=== PATIENT | female | born 1990 | race African-American/Black ===

== ENCOUNTER 2018-12-07 06:16 | Inpatient (IN) ==
[2018-12-07] MEDS ORDERED: LACTATED RINGERS 250 ML IV ONE (06:35)
[2018-12-07] MEDS ORDERED: ONDANSETRON 4 MG/2 ML VIAL IV PRN ×2 (06:35→17:54)
[2018-12-07] MEDS ORDERED: MEPERIDINE 50 MG/1 ML VIAL IV PRN (06:35)
[2018-12-07] MEDS ORDERED: LACTATED RINGERS 500 ML IV PRN (06:35)
[2018-12-07] MEDS ORDERED: BUTORPHANOL 1 MG/ML VIAL IV PRN (06:35)
[2018-12-07] MEDS ORDERED: OXYTOCIN/LR 20 UNIT/1,000 ML BAG IV SCH (07:00)
[2018-12-07 07:03] LABS: Basophils % 0.4 % (0.0-0.8); Eosinophils # 0.1 10*3/uL (0.0-0.87); Eosinophils % 1.3 % (0.00-10.9); Hematocrit 29.7 VOL% (35.7-47.0); Hemoglobin 9.3 GM/DL (12.0-16.0); Immature Granulocytes % 1.6 %; Immature Granulocytes Absolute 0.17 #; Lymphocytes # 1.9 10*3/uL (1.4-4.0); Lymphocytes % 17.5 % (21.3-54.2); Mean Corpuscular HGB Conc 31.3 GM/DL (32-36); Mean Corpuscular Volume 89.2 FL (87-102); Mean Platelet Volume 9.8 FL (9.6-12.0); Monocytes % 10.9 % (1.7-12.7); Neutrophils % 68.3 % (38.7-73.9); Platelet Count 281 T/CUMM (130-400); Red Blood Count 3.33 MC/CUMM (3.8-5.5); Red Cell Distribution Width 15.7 % (9.3-17.3); White Blood Count 10.9 T/CUMM (4-12)
[2018-12-07] MEDS ORDERED: CITRIC ACID/SODIUM CITRATE 30 ML UDCUP PO ONE (07:11)
[2018-12-07] MEDS ORDERED: FAMOTIDINE 20 MG/2 ML VIAL IV ONE (07:11)
[2018-12-07] MEDS ORDERED: NALOXONE 0.4 MG/ML VIAL IV PRN ×2 (07:11→19:13)
[2018-12-07 07:21] LABS: Alanine Aminotransferase 19 U/L (13-56); Albumin 2.7 G/DL (3.4-5.0); Alkaline Phosphatase 151 U/L (45-117); Aspartate Amino Transferase 16 U/L (0-37); Bilirubin,Total < 0.39 MG/DL (0.2-1.0); Blood Urea Nitrogen 7 MG/DL (7-18); Calcium 8.8 MG/DL (8.5-10.1); Glucose 77 MG/DL (74-106); Osmolality,Calculated 275.4 MOS/KG (273-304); Uric Acid 5.1 MG/DL (2.6-6.0)
[2018-12-07] MEDS ORDERED: hydrOXYzine HCL 25 MG/1 ML VIAL IM PRN (07:23)
[2018-12-07] MEDS ORDERED: diphenhydrAMINE 50 MG/1 ML VIAL IV PRN (07:23)
[2018-12-07] MEDS ORDERED: ePHEDrine 50 MG/ML AMP IV PRN (07:23)
[2018-12-07] MEDS ORDERED: PROMETHAZINE 25 MG/1 ML VIAL IM ONE (07:23)
[2018-12-07] MEDS ORDERED: fentaNYL 2 MCG/ROPIV 0.2% EPID 100 ML EPIDURAL SCH (07:30)
[2018-12-07] MEDS ORDERED: LACTATED RINGERS 1,000 ML IV ONE (07:40)
[2018-12-07] MEDS: LACTATED RINGERS 1,000 ML IV SCH ×2 (07:53→13:28)
[2018-12-07 08:48] LABS: Apearance,Urine CLEAR (Clear); Bilirubin,Urine Negative (Negative); Blood, Urine Negative (Negative); Glucose,Urine (UA) Negative (Negative); Ketones,Urine Negative (Negative); Nitrite,Urine Negative (Negative); Protein,Urine Negative; RBC,Urine 1 /HPF (0-4); Squamous Epithelial Cell,Urine Occasional /HPF (0-10); Urine Color Straw (Yellow); Urine Specific Gravity 1.005 (1.001-1.035); Urine Urobilinogen < 2.0 EU/DL (0.2-1.0); WBC,Urine 1 /HPF (0-6)
[2018-12-07] MEDS ORDERED: ceFAZolin 2,000 MG in PREMIX 1 EACH IV ONE (16:40)
[2018-12-07] MEDS ORDERED: OXYTOCIN/LR 30 UNIT/1,000 ML BAG IV ONE (16:42)
[2018-12-07] MEDS ORDERED: OXYTOCIN 10 UNIT/ML VIAL IM ONE (16:42)
[2018-12-07] MEDS ORDERED: miSOPROStol 200 MCG TABLET ONE (16:51)
[2018-12-07] MEDS ORDERED: TRANEXAMIC ACID 1,000 MG/10 ML VIAL ONE (16:51)
[2018-12-07] MEDS ORDERED: CARBOPROST TROMETHAMINE 250 MCG/ML AMP IM ONE (16:51)
[2018-12-07] MEDS ORDERED: METHYLERGONOVINE 0.2 MG/1 ML AMP ONE (16:51)
[2018-12-07 17:50] LABS: Cord Venous Blood HCO3 22.7 MMOL/L; Cord Venous Blood PCO2 41.4 MMHG; Cord Venous Blood PO2 30.9
[2018-12-07] MEDS ORDERED: ACETAMINOPHEN 325 MG TABLET PO PRN (17:54)
[2018-12-07] MEDS ORDERED: RHO(D) IMMUNE GLOBULIN 300 MCG SYRINGE IM ONE (17:54)
[2018-12-07] MEDS ORDERED: OXYTOCIN/LR 20 UNIT/1,000 ML BAG IV ONE (17:54)
[2018-12-07] MEDS ORDERED: ROPIVACAINE 0.2% 100 ML EPIDURAL SCH (18:00)
[2018-12-07] MEDS ORDERED: LACTATED RINGERS 1,000 ML IV SCH (18:00)
[2018-12-07] MEDS ORDERED: MORPHINE 10 MG/10 ML VIAL ONE (18:22)
[2018-12-07] MEDS ORDERED: LIDOCAINE MPF 2% /EPI 20 ML VIAL ONE (18:22)
[2018-12-07] MEDS ORDERED: MIDAZOLAM 2 MG/2 ML VIAL ONE (18:22)
[2018-12-07] MEDS ORDERED: HYDROmorphone PCA 30 MG/30 ML SYRINGE IV SCH (19:30)
[2018-12-07] MEDS: DOCUSATE SODIUM 100 MG CAPSULE PO SCH (22:58)
[2018-12-07] MEDS: ceFAZolin 1,000 MG in SYRINGE 1 EACH IV SCH (23:55)
[2018-12-08 05:56] LABS: Basophils % 0.2 % (0.0-0.8); Eosinophils # 0.1 10*3/uL (0.0-0.87); Eosinophils % 0.4 % (0.00-10.9); Hematocrit 27.3 VOL% (35.7-47.0); Hemoglobin 8.8 GM/DL (12.0-16.0); Immature Granulocytes % 0.9 %; Immature Granulocytes Absolute 0.13 #; Lymphocytes # 1.2 10*3/uL (1.4-4.0); Mean Corpuscular HGB Conc 32.2 GM/DL (32-36); Mean Corpuscular Volume 88.9 FL (87-102); Mean Platelet Volume 10.1 FL (9.6-12.0); Monocytes % 8.6 % (1.7-12.7); Neutrophils % 80.9 % (38.7-73.9); Platelet Count 245 T/CUMM (130-400); Red Blood Count 3.07 MC/CUMM (3.8-5.5); Red Cell Distribution Width 15.6 % (9.3-17.3); White Blood Count 13.7 T/CUMM (4-12)
[2018-12-08] MEDS: MAGNESIUM HYDROXIDE SUSP 30 ML UDCUP PO PRN ×2 (08:27→20:51)
[2018-12-08] MEDS: ceFAZolin 1,000 MG in SYRINGE 1 EACH IV SCH (08:28)
[2018-12-08] MEDS: MULTIVITAMIN (PRENATAL) TABLET PO SCH (08:28)
[2018-12-08] MEDS: METOCLOPRAMIDE 10 MG TABLET PO PRN ×2 (08:30→17:10)
[2018-12-08] MEDS: DOCUSATE SODIUM 100 MG CAPSULE PO SCH ×2 (08:31→20:51)
[2018-12-08] MEDS: SIMETHICONE CHEW 80 MG TABLET PO PRN (08:31)
[2018-12-08] MEDS: TRIAMCINOLONE 0.1% CREAM 15 GM TUBE TOP SCH ×2 (19:29→20:52)
[2018-12-08] MEDS: IBUPROFEN 800 MG TABLET PO PRN (19:36)
[2018-12-08] MEDS ORDERED: BISACODYL 10 MG SUPP RECTAL PRN (20:46)
[2018-12-08] MEDS ORDERED: MAGNESIUM CITRATE 300 ML BOTTLE PO PRN (23:10)
[2018-12-09] MEDS: METOCLOPRAMIDE 10 MG TABLET PO PRN ×2 (01:02→08:27)
[2018-12-09] MEDS: IBUPROFEN 800 MG TABLET PO PRN (03:51)
[2018-12-09] MEDS: DOCUSATE SODIUM 100 MG CAPSULE PO SCH (08:27)
[2018-12-09] MEDS: SIMETHICONE CHEW 80 MG TABLET PO PRN (08:28)
[2018-12-09] MEDS: MAGNESIUM HYDROXIDE SUSP 30 ML UDCUP PO PRN (08:28)
[2018-12-09] MEDS: MULTIVITAMIN (PRENATAL) TABLET PO SCH (08:28)
[2018-12-09] MEDS: TRIAMCINOLONE 0.1% CREAM 15 GM TUBE TOP SCH (09:00)
[2018-12-09 09:37] VITALS: BP 148/84
[2018-12-09] MEDS ORDERED: DIPH/TET/ACEL PERT BOOSTER VACCINE 0.5 ML VIAL IM ONE (11:46)
== END 2018-12-09 13:00 | disposition home or self-care (01) | DRG 788 ==
LOC: N.LDOUT 06:16 → N.LD 06:17 → N.OB 21:09
PROVIDERS: ADMIT Obstetrics & Gynecology; ATTEND Obstetrics & Gynecology
PROC: LDCSECT (ICD-10-PCS; 2018-12-07 17:30)

== ENCOUNTER 2020-04-28 03:05 | Inpatient (IN) ==
[2020-04-28] MEDS ORDERED: BUTORPHANOL 2 MG/ML VIAL IV PRN (03:12)
[2020-04-28] MEDS ORDERED: ONDANSETRON 4 MG/2 ML VIAL IV PRN ×2 (03:12→18:08)
[2020-04-28] MEDS ORDERED: MEPERIDINE 50 MG/1 ML VIAL IV PRN (03:12)
[2020-04-28] MEDS ORDERED: OXYTOCIN/LR 20 UNIT/1,000 ML BAG IV SCH (03:30)
[2020-04-28] MEDS: LACTATED RINGERS 1,000 ML IV SCH ×2 (03:53→12:20)
[2020-04-28] MEDS ORDERED: AMPICILLIN INJ 2,000 MG in SODIUM CHLORIDE 0.9% 100 ML IV ONE (04:00)
[2020-04-28 04:02] LABS: Basophils % 0.2 % (0.0-0.8); Eosinophils # 0.2 10*3/uL (0.0-0.87); Eosinophils % 1.8 % (0.00-10.9); Hematocrit 25.4 VOL% (35.7-47.0); Hemoglobin 8.4 GM/DL (12.0-16.0); Immature Granulocytes % 1.5 %; Lymphocytes # 2.5 10*3/uL (1.4-4.0); Lymphocytes % 19.2 % (21.3-54.2); Mean Corpuscular HGB Conc 33.1 GM/DL (32-36); Mean Corpuscular Volume 90.1 FL (87-102); Mean Platelet Volume 9.7 FL (9.6-12.0); Monocytes % 8.4 % (1.7-12.7); Neutrophils % 68.9 % (38.7-73.9); Platelet Count 364 T/CUMM (130-400); Red Blood Count 2.82 MC/CUMM (3.8-5.5); Red Cell Distribution Width 14.8 % (9.3-17.3)
[2020-04-28 04:17] LABS: Alanine Aminotransferase 16 U/L (13-56); Albumin 2.5 G/DL (3.4-5.0); Alkaline Phosphatase 186 U/L (45-117); Aspartate Amino Transferase 15 U/L (0-37); Bilirubin,Total < 0.39 MG/DL (0.2-1.0); Blood Urea Nitrogen 8 MG/DL (7-18); Calcium 8.8 MG/DL (8.5-10.1); Estimated Glom Filtration Rate 158 ML/MIN; Glucose 80 MG/DL (74-106); Osmolality,Calculated 273.5 MOS/KG (273-304); Total Protein 6.9 G/DL (6.4-8.3)
[2020-04-28 04:43] LABS: Eosinophils 1 % (0-10); Lymphocytes 15 % (20-55); Metamyelocytes 2 %; Platelet Estimate Normal; Segmented Neutrophils 74 % (50-85); Total Cells Counted 100
[2020-04-28] MEDS ORDERED: AMPICILLIN INJ 1,000 MG in SODIUM CHLORIDE 0.9% 100 ML IV SCH (09:00)
[2020-04-28] MEDS ORDERED: diphenhydrAMINE 50 MG/1 ML VIAL IV PRN ×2 (10:00)
[2020-04-28] MEDS ORDERED: FAMOTIDINE 20 MG/2 ML VIAL IV ONE (10:00)
[2020-04-28] MEDS ORDERED: LACTATED RINGERS 1,000 ML IV ONE (10:00)
[2020-04-28] MEDS ORDERED: CITRIC ACID/SODIUM CITRATE 30 ML UDCUP PO ONE (10:00)
[2020-04-28] MEDS ORDERED: LACTATED RINGERS 250 ML IV PRN (10:00)
[2020-04-28] MEDS ORDERED: NALOXONE 0.4 MG/ML VIAL IV PRN (10:00)
[2020-04-28] MEDS ORDERED: fentaNYL 2 MCG/ROPIV 0.2% EPID 100 ML EPIDURAL SCH (10:00)
[2020-04-28] MEDS ORDERED: PROMETHAZINE 25 MG/1 ML VIAL IM ONE (10:00)
[2020-04-28] MEDS ORDERED: hydrOXYzine HCL 25 MG/1 ML VIAL IM PRN (10:00)
[2020-04-28] MEDS ORDERED: ePHEDrine 50 MG/ML VIAL IV PRN (10:00)
[2020-04-28 13:39] LABS: Bacteria,Urine Occasional /HPF (Few); Bilirubin,Urine Negative (Negative); Blood, Urine Small mg/dL (Negative); Glucose,Urine (UA) Negative (Negative); Ketones,Urine Negative (Negative); Nitrite,Urine Negative (Negative); Protein,Urine 100 MG/DL; RBC,Urine 12 /HPF (0-4); Squamous Epithelial Cell,Urine Occasional /HPF (0-10); Urine Appearance CLEAR (Clear); Urine Color Yellow (Yellow); Urine Specific Gravity 1.025 (1.001-1.035); Urine Urobilinogen < 2.0 EU/DL (0.2-1.0); WBC,Urine 1 /HPF (0-6)
[2020-04-28] MEDS ORDERED: ceFAZolin 3,000 MG in SYRINGE 1 EACH IV ONE (16:13)
[2020-04-28] MEDS ORDERED: SODIUM CHLORIDE 0.9% 100 ML IV ONE (16:22)
[2020-04-28] MEDS ORDERED: OXYTOCIN/LR 30 UNIT/1,000 ML BAG IV ONE (16:27)
[2020-04-28] MEDS ORDERED: OXYTOCIN 10 UNIT/ML VIAL IM ONE (16:27)
[2020-04-28] MEDS ORDERED: TRANEXAMIC ACID 1,000 MG/10 ML VIAL ONE (16:37)
[2020-04-28] MEDS ORDERED: miSOPROStoL 200 MCG TABLET ONE (16:37)
[2020-04-28] MEDS ORDERED: METHYLERGONOVINE 0.2 MG/1 ML AMP ONE (16:38)
[2020-04-28] MEDS ORDERED: CARBOPROST TROMETHAMINE 250 MCG/ML AMP IM ONE (16:38)
[2020-04-28] MEDS ORDERED: ACETAMINOPHEN 325 MG TABLET PO PRN (18:08)
[2020-04-28] MEDS ORDERED: OXYTOCIN/LR 20 UNIT/1,000 ML BAG IV ONE (18:08)
[2020-04-28] MEDS ORDERED: SIMETHICONE CHEW 80 MG TABLET PO PRN (18:08)
[2020-04-28] MEDS ORDERED: RHO(D) IMMUNE GLOBULIN 300 MCG SYRINGE IM ONE (18:08)
[2020-04-28] MEDS ORDERED: ALBUTEROL INHALER 18 GM INH ONE (18:14)
[2020-04-28 18:15] LABS: Cord Arterial Blood HCO3 25.2 MMOL/L
[2020-04-28] MEDS: ALBUTEROL 2.5 MG/3 ML NEB RESP TX SCH ×2 (18:15→19:03)
[2020-04-28 18:21] LABS: Cord Venous Blood HCO3 23.6 MMOL/L; Cord Venous Blood PCO2 39.2 MMHG; Cord Venous Blood PO2 34.1 MMHG
[2020-04-28] MEDS ORDERED: MORPHINE 10 MG/10 ML VIAL ONE (18:22)
[2020-04-28] MEDS ORDERED: LACTATED RINGERS 1,000 ML IV SCH (18:30)
[2020-04-28] MEDS ORDERED: HYDROmorphone 2 MG/1 ML VIAL IV PRN (19:05)
[2020-04-28] MEDS: DOCUSATE SODIUM 100 MG CAPSULE PO SCH (23:57)
[2020-04-29] MEDS: ceFAZolin 1,000 MG in SYRINGE 1 EACH IV SCH ×2 (01:25→09:05)
[2020-04-29 01:45] LABS: Basophils % 0.2 % (0.0-0.8); Eosinophils # 0.1 10*3/uL (0.0-0.87); Eosinophils % 0.8 % (0.00-10.9); Hematocrit 23.8 VOL% (35.7-47.0); Hemoglobin 7.9 GM/DL (12.0-16.0); Immature Granulocytes % 0.6 %; Immature Granulocytes Absolute 0.08 #; Lymphocytes # 1.6 10*3/uL (1.4-4.0); Lymphocytes % 12.6 % (21.3-54.2); Mean Corpuscular HGB Conc 33.2 GM/DL (32-36); Mean Corpuscular Volume 89.8 FL (87-102); Mean Platelet Volume 9.7 FL (9.6-12.0); Monocytes % 7.7 % (1.7-12.7); Neutrophils % 78.1 % (38.7-73.9); Platelet Count 311 T/CUMM (130-400); Red Blood Count 2.65 MC/CUMM (3.8-5.5); Red Cell Distribution Width 14.8 % (9.3-17.3); White Blood Count 12.3 T/CUMM (4-12)
[2020-04-29] MEDS ORDERED: diphenhydrAMINE CAP 25 MG CAPSULE PO PRN (02:33)
[2020-04-29] MEDS: ALBUTEROL 2.5 MG/3 ML NEB RESP TX PRN (03:57)
[2020-04-29 08:09] LABS: Basophils % 0.1 % (0.0-0.8); Eosinophils # 0.1 10*3/uL (0.0-0.87); Eosinophils % 0.7 % (0.00-10.9); Hematocrit 25.2 VOL% (35.7-47.0); Hemoglobin 8.3 GM/DL (12.0-16.0); Immature Granulocytes % 0.6 %; Immature Granulocytes Absolute 0.08 #; Lymphocytes # 1.3 10*3/uL (1.4-4.0); Lymphocytes % 9.4 % (21.3-54.2); Mean Corpuscular HGB Conc 32.9 GM/DL (32-36); Mean Corpuscular Volume 90.3 FL (87-102); Mean Platelet Volume 9.4 FL (9.6-12.0); Monocytes % 8.2 % (1.7-12.7); Platelet Count 313 T/CUMM (130-400); Red Blood Count 2.79 MC/CUMM (3.8-5.5); Red Cell Distribution Width 14.9 % (9.3-17.3); White Blood Count 13.4 T/CUMM (4-12)
[2020-04-29] MEDS: FERROUS SULFATE 325 MG TABLET PO SCH ×2 (09:01→21:17)
[2020-04-29] MEDS: DOCUSATE SODIUM 100 MG CAPSULE PO SCH ×2 (09:01→21:17)
[2020-04-29] MEDS: MAGNESIUM HYDROXIDE SUSP 30 ML UDCUP PO PRN ×2 (09:01→21:17)
[2020-04-29] MEDS: MULTIVITAMIN (PRENATAL) TABLET PO SCH (09:01)
[2020-04-29] MEDS: IBUPROFEN 800 MG TABLET PO PRN (12:58)
[2020-04-29] MEDS ORDERED: guaiFENesin/CODEINE 5 ML LIQUID PO PRN (16:43)
[2020-04-29] MEDS: METOCLOPRAMIDE 10 MG TABLET PO SCH (17:34)
[2020-04-30] MEDS: ALBUTEROL 2.5 MG/3 ML NEB RESP TX PRN (00:14)
[2020-04-30] MEDS: METOCLOPRAMIDE 10 MG TABLET PO SCH ×3 (00:49→17:39)
[2020-04-30] MEDS: DOCUSATE SODIUM 100 MG CAPSULE PO SCH ×2 (09:17→21:04)
[2020-04-30] MEDS: FERROUS SULFATE 325 MG TABLET PO SCH ×2 (09:17→21:05)
[2020-04-30] MEDS: MULTIVITAMIN (PRENATAL) TABLET PO SCH (09:17)
[2020-04-30] MEDS: IBUPROFEN 800 MG TABLET PO PRN ×2 (09:19→20:22)
[2020-04-30] MEDS: MAGNESIUM HYDROXIDE SUSP 30 ML UDCUP PO PRN ×2 (09:21→21:05)
[2020-05-01] MEDS: METOCLOPRAMIDE 10 MG TABLET PO SCH ×2 (00:31→10:39)
[2020-05-01] MEDS: ALBUTEROL 2.5 MG/3 ML NEB RESP TX PRN (07:52)
[2020-05-01] MEDS: MULTIVITAMIN (PRENATAL) TABLET PO SCH (08:52)
[2020-05-01] MEDS: FERROUS SULFATE 325 MG TABLET PO SCH (08:52)
[2020-05-01] MEDS: DOCUSATE SODIUM 100 MG CAPSULE PO SCH (08:52)
[2020-05-01] MEDS ORDERED: AZITHROMYCIN 250 MG TABLET PO ONE (09:03)
[2020-05-01 12:21] VITALS: BP 151/83
[2020-05-01] MEDS ORDERED: FUROSEMIDE 40 MG/4 ML VIAL IV ONE (12:59)
[2020-05-01] MEDS ORDERED: BUDESONIDE 0.5 MG/2 ML NEB RESP TX ONE (13:00)
[2020-05-01] MEDS ORDERED: ALBUTEROL/IPRATROPIUM 3 ML NEB RESP TX ONE (13:01)
[2020-05-01] MEDS ORDERED: FUROSEMIDE 40 MG TABLET PO ONE (13:55)
[2020-05-01] MEDS ORDERED: DEXAMETHASONE 10 MG/1 ML VIAL IV ONE (14:00)
== END 2020-05-01 18:00 | disposition home or self-care (01) | DRG 785 ==
LOC: N.LD 03:05 → N.OB 23:05
PROVIDERS: ADMIT Obstetrics & Gynecology; ATTEND Obstetrics & Gynecology